=== PATIENT | female | born 1985 | race Caucasian/White ===

== ENCOUNTER 2017-10-05 16:05 | Inpatient (IN) ==
[2017-10-05] MEDS ORDERED: LABETALOL 100mg/20ml INJECTION IVP ONE ×3 (17:20→20:33)
[2017-10-05] MEDS ORDERED: CALCIUM CARBONATE Chewable 500mg TABLET PO PRN (17:34)
[2017-10-05] MEDS ORDERED: MAG-AL + SIM ORAL LIQUID 30ml PO PRN (17:34)
[2017-10-05] MEDS ORDERED: CARBOPROST 250 MCG/ML INJECTION IM PRN (17:34)
[2017-10-05] MEDS ORDERED: LR 1,000 ML IV PRN (17:34)
[2017-10-05] MEDS ORDERED: METHYLERGONOVINE 0.2 MG/ML INJECTION IM PRN (17:34)
--- NOTE | 2017-10-05 17:36 | OB/GYN History & Physical ---
- History of Present Illness Date of Admission: 10/05/17 16:05 History of Present Illness: G1 at 33w6d came in for a routine OB check today and was found to have BPs in the mildly elevated range, 4+ protein on dip, and 12 pound weight gain in the last 2 weeks. No BP Sx. Here on [facility] her systolic BPs have all been in the severely elevated range. 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 Labetolol for her BP, magnesium for seizure prophylaxis, and betamethasone for lung maturity. Will start ripening tomorrow evening after the second steroid dose. Lots of questions answered. Current visit: Yes Status: Acute
[2017-10-05] MEDS ORDERED: CALCIUM GLUCONATE 4.65mEq/10ml INJECTION IV PRN (17:38)
[2017-10-05] MEDS ORDERED: CITRIC ACID/SODIUM CITRATE 30ml PO PRN (17:38)
[2017-10-05] MEDS ORDERED: MAGNESIUM SULFATE 6gm PREMIX 6 GM/100 ML BAG IV ONE (18:00)
[2017-10-05] MEDS ORDERED: BETAMETHASONE 30 MG/5 ML INJECTION IM ONE (18:00)
[2017-10-05] MEDS: MAGNESIUM SULFATE DRIP 20 GM/500 ML BAG IV SCH (18:33)
[2017-10-05] MEDS: ACETAMINOPHEN 500 MG TABLET PO PRN (21:40)
[2017-10-06 00:06] VITALS: BMI 49.3
[2017-10-06] MEDS ORDERED: DiphenhydrAMINE 25 MG CAPSULE PO PRN ×2 (00:57→18:00)
[2017-10-06] MEDS: LABETALOL 100 MG TABLET PO SCH ×3 (00:59→22:15)
[2017-10-06] MEDS: MAGNESIUM SULFATE DRIP 20 GM/500 ML BAG IV SCH ×2 (04:38→15:26)
[2017-10-06] MEDS: ACETAMINOPHEN 500 MG TABLET PO PRN ×2 (05:25→15:23)
--- NOTE | 2017-10-06 08:38 | Ultrasound Report ---
Indication: Severe preeclampsia PROCEDURE: US OB age growth: Encounter: Initial Age by provided LMP is 34 weeks and 0 days correlating to an ARTEMIO of February 10, 2017. Comparison: None PROCEDURE: US OB age growth: Technique: Grayscale and color Doppler transabdominal sonographic imaging was performed. Findings: There is a single living intrauterine gestation in cephalic lie. Placenta is anterior without previa. Quantity of amniotic fluid is normal. Amniotic fluid index is normal at 12.2 cm. Largest vertical pocket in the right lower quadrant is 3.8 cm. Umbilical artery Doppler tracing reveals a peak systolic velocity of 57.4 cm/sec, end diastolic velocity of 14.5 cm/sec, resistive index of 0.75, pulsatility index of 1.32, S/D ratio of 4, and TAPV of 32.6 cm/sec. heart beats regularly at 130 beats per minute. biometry: Biparietal diameter: 8.44 cm 34 weeks and 0 days (47 percentile). Head circumference: 30.77 cm 34 weeks and 3 days (22 percentile). Abdominal circumference: 28.83 cm 32 weeks and 6 days (21 percentile). Femur Length: 6.5 cm 33 weeks and 4 days (27 percentile). biometrics are internally concordant and consistent with an estimated gestational age of 33 weeks and 5 days. Estimated weight is 2163 grams (24 percentile by LMP and 30 percentile by AUA method). Impression: 1. Single living intrauterine gestation with age by provided LMP of 34 weeks and 0 days. This correlates to an ARTEMIO of November 17, 2017. 2. Best estimate of gestational age on today's exam is 33 weeks and 5 days, correlating to an ARTEMIO of November 19, 2017. 3. No acute abnormality seen. .
--- NOTE | 2017-10-06 11:59 | OB/GYN Progress Note ---
UX DEVELOPER Progress Note - Subjective Today's Date: 10/06/17 Patient is feeling ok. No BARROW/scotomata/RUQ pain. No SOA. Good FM. - Objective Urine Output: good General: alert and oriented Abdomen: soft Extremities: non-tender Laboratory Result: 10/06/17 05:16 10/06/17 05:16 Additional Findings: FHT with moderate variability when we are able to trace. No ctx. - Assessment and Plan (1) 34 weeks gestation of Assessment and Plan: Routine care. (2) Severe preeclampsia Qualifiers: Trimester: third trimester Qualified Code(s): O14.13 - Severe pre-eclampsia , third trimester Comment: Last PM she was given labetolol 20 mg IV x2, 40 mg and 80 mg, which brought her BPs down to normal. She received a 200 mg PO dose of labetolol this AM. Will start ripening this evening with the second steroid dose. Q&A.
[2017-10-06] MEDS: PANTOPRAZOLE 40 MG TABLET PO SCH (14:00)
[2017-10-06] MEDS: LEVOTHYROXINE 50 MCG TABLET PO SCH (14:02)
[2017-10-06] MEDS ORDERED: DINOPROSTONE 10 MG VAGINAL INSERT VG ONE ×2 (17:00→17:27)
[2017-10-06] MEDS ORDERED: TERBUTALINE 1 MG/ML VIAL SQ PRN (17:27)
[2017-10-06] MEDS ORDERED: BETAMETHASONE 30 MG/5 ML INJECTION IM ONE (18:00)
[2017-10-06] MEDS ORDERED: CITRIC ACID/SODIUM CITRATE 30ml PO ONE (22:54)
[2017-10-06] MEDS ORDERED: PROCHLORPERAZINE 10 MG/2 ML INJECTION IVP ONE (22:55)
[2017-10-06] MEDS ORDERED: PROCHLORPERAZINE 10 MG/2 ML INJECTION IM ONE (22:55)
[2017-10-07] MEDS: MAGNESIUM SULFATE DRIP 20 GM/500 ML BAG IV SCH ×2 (01:35→11:17)
[2017-10-07] MEDS ORDERED: OXYTOCIN DRIP 30 UNIT/500 ML ML IV PRN ×2 (05:00)
[2017-10-07] MEDS: D5LR 1,000 ML IV PRN ×2 (05:26→18:42)
[2017-10-07] MEDS: PANTOPRAZOLE 40 MG TABLET PO SCH (06:39)
[2017-10-07] MEDS: ACETAMINOPHEN 500 MG TABLET PO PRN (06:39)
[2017-10-07] MEDS: LEVOTHYROXINE 50 MCG TABLET PO SCH (06:39)
[2017-10-07] MEDS ORDERED: LIDOCAINE 2% JELLY Tube 30ml TOP ONE (07:29)
[2017-10-07] MEDS ORDERED: ONDANSETRON 4 MG/2 ML INJECTION IVP PRN ×2 (10:20→21:02)
[2017-10-07] MEDS ORDERED: NALOXONE 0.4 MG/ML INJECTION IVP PRN (10:20)
[2017-10-07] MEDS ORDERED: DiphenhydrAMINE 50 MG/ML INJECTION IVP PRN ×2 (10:20→21:02)
[2017-10-07] MEDS ORDERED: ROPIVACAINE 1% 10MG/ML INJ 200 MG, SUFentanil 50 MCG in NS 100 ML EPI PRN (10:20)
--- NOTE | 2017-10-07 10:24 | Anesthesia Preoperative Report ---
Anesthesia Epidural/Spinal Rec - Date and Time Date: 10/07/17 Procedure: Labor Epidural Plan: Epidural - Vital Signs /Para: P:0 Heart Rate: 126 - Medictaions & Allergies Inpatient Medications: Current Medications Acetaminophen (Tylenol) 500 - 1,000 mg PO Q4H PRN PRN Reason: Pain Last Admin: 10/07/17 06:39 Dose: 1,000 mg Al Hydroxide/Mg Hydroxide (Maalox Plus) 30 ml PO Q3H PRN PRN Reason: Indigestion Calcium Carbonate (Tums) 500 - 1,000 mg PO Q2H PRN PRN Reason: Indigestion Calcium Gluconate (Calcium Gluconate 4.65 Meq/10 Ml (1 Gram)) 4.65 meq IV O PRN Carboprost Tromethamine (Hemabate) 250 mcg IM O PRN PRN Reason: .Downtime Citric Acid/Sodium Citrate (Oracit) 30 ml PO Q2H PRN Last Admin: 10/06/17 00:51 Dose: 30 ml Diphenhydramine HCl (Benadryl) 25 - 50 mg PO HS PRN PRN Reason: Itching Last Admin: 10/06/17 00:59 Dose: 50 mg Diphenhydramine HCl (Benadryl) 50 mg PO HS PRN PRN Reason: Sleep Diphenhydramine HCl (Benadryl) 25 - 50 mg IVP Q3H PRN PRN Reason: Itching Lactated Ringer's (Lactated Ringers) 1,000 mls @ 999 mls/hr IV .Q1H1M PRN Last Admin: 10/07/17 05:29 Dose: 999 mls/hr Magnesium Sulfate (Magnesium Sulfate Drip) 20 gm in 500 mls @ 50 mls/hr IV .Q10H MANJU PRN Reason: 2 G/HR Last Admin: 10/07/17 01:35 Dose: 2 g/hr, 50 mls/hr Dextrose/Lactated Ringer's (Dextrose 5%-Lactated Ringers) 1,000 mls @ 125 mls/ hr IV .Q8H PRN PRN Reason: Labor Last Admin: 10/07/17 05:26 Dose: 125 mls/hr Oxytocin (Pitocin Drip) 30 unit in 500 mls @ 2 mls/hr IV .Q24H PRN; Protocol PRN Reason: Induction/Augmentation Last Admin: 10/07/17 05:27 Dose: 2 mls/hr Oxytocin (Pitocin Drip) 30 unit in 500 mls @ 2 mls/hr IV .Q24H PRN; Protocol PRN Reason: Induction/Augmentation Ropivacaine 200 mg/ Sufentanil Citrate 50 mcg/ Sodium Chloride 121 mls @ 8 mls/ hr EPI PRN PRN PRN Reason: Protocol Labetalol HCl (Normodyne) 200 mg PO BID [facility] Last Admin: 10/06/17 22:15 Dose: Not Given Levothyroxine Sodium (Synthroid) 50 mcg PO ACB [facility] Last Admin: 10/07/17 06:39 Dose: 50 mcg Methylergonovine Maleate (Methergine) 0.2 mg IM O PRN Misoprostol (Cytotec) 800 mcg SC ONCE PRN Naloxone HCl (Narcan) 0.1 mg IVP Q2M PRN PRN Reason: Respiratory distress Ondansetron HCl (Zofran) 4 mg IVP Q6H PRN PRN Reason: Nausea &/or vomiting Pantoprazole Sodium (Protonix Tab) 40 mg PO ACB [facility] Last Admin: 10/07/17 06:39 Dose: 40 mg Terbutaline Sulfate (Brethine) 0.25 mg SQ PRN PRN Allergies/Adverse Reactions: Allergies Allergy/AdvReac Type Severity Reaction Status Date / Time No Known Allergies Allergy Verified 10/05/17 17:12 - Home Medications Home Medications: Home Medications Medication Instructions Recorded Confirmed Type Pantoprazole Tab [Protonix Tab] 1 tab PO ACBID 10/05/17 10/05/17 History Pnv No.95/Ferrous Fum/Folic AC 1 each PO 10/05/17 History [ Multivitamin Tablet] Aspirin Chewable [ASA] 81 mg PO 10/06/17 History Folic Acid [Folate] 1 tab PO DAILY 10/06/17 10/06/17 History Lactobacillus Acidophilus 1 each PO 10/06/17 History [Probiotic] Montelukast [Singulair] 10 mg PO HS 10/06/17 10/06/17 History - Medical History Respiratory: Reports: Sleep Apnea Cardiovascular: Reports: High Cholesterol Gastrointestional: Reports: Gastroesophageal Reflux Disease, Morbid Obesity Renal/Endocrine: Reports: Thyroid Disease (subclinical hypothyroidism) Other History: Reports: Now - Surgical History HEENT Surgeries: Reports: Oral Surgery (wisdom tooth extraction) Respiratory Surgery/Treatments: Reports: CPAP Use (x5 years) Reproductive Surgery/Treatment: Reports: Laparoscopy (2010, 2012, 2013), Salpingectomy (bilateral 2012) Anesthesia Reactions: None Hx Family Anesthesia Reaction: No History of Motion Sickness: No - Social History Smoking Status: Never smoker Second Hand Exposure: No Substance Use Type: does not use Alcohol Intake Frequency: does not drink - Pertinent Findings Lab Data: CBC and BMP 10/07/17 05:56 10/07/17 05:56 BMP 10/05/17 10/06/17 10/07/17 16:00 18:19 05:56 Sodium 134 L 135 L Potassium 5.3 H 4.6 Chloride 103 103 Carbon Dioxide 19 L 19 L BUN 14.0 15.0 Creatinine 0.6 L 0.6 L 0.6 L Glucose 106 143 H Calcium 7.7 L 7.3 L Liver Function 10/06/17 10/07/17 Range/Units 18:19 05:56 Total Bilirubin 0.60 0.40 (0.20-1.30) MG/DL AST 34 23 (14-36) U/L ALT 24 20 (1-35) U/L Alkaline Phosphatase 146 H 140 H (38-126) U/L Albumin 3.9 3.7 (3.5-5.0) g/dL Urine 10/05/17 Range/Units 16:00 Urine Protein 260 mg/dL - Physical Exam Respiratory Exam: lungs clear, bilateral breath sounds equal Cardiovascular Exam: regular rate and rhythm - Airway Assessment Mallampati Score: III TMD: 3 Fingerbreadths Neck Extension: fair Overall Assessment: may be difficult intubation - ASA ASA Score: 3 - Discussion Discussion: Discussed risks/options/alternatives of anesthesia and questions answered. Patient consents. Nursing pain assessment noted. Anesthesia Discussion: spouse Attestation Statement: Prior to the delivery of any anesthetic medication, I examined the patient, developed the plan, obtained the patient's consent and discussed the risk and benefits of the procedure with the patient/guardian.
[2017-10-07] MEDS: LABETALOL 100 MG TABLET PO SCH (11:19)
[2017-10-07] MEDS ORDERED: EPHEDRINE 50mg/ml INJECTION IVP ONE (11:30)
[2017-10-07] MEDS ORDERED: LEVOTHYROXINE 50 MCG TABLET PO SCH (12:59)
[2017-10-07] MEDS ORDERED: CITRIC ACID/SODIUM CITRATE 30ml PO ONE (19:38)
[2017-10-07] MEDS ORDERED: CEFAZOLIN PREMIX (MC ONLY) 2 GM/50 ML BAG IV ONE (19:38)
[2017-10-07] MEDS ORDERED: FAMOTIDINE PB 20 MG/50 ML BAG IV ONE (19:38)
[2017-10-07] MEDS ORDERED: AZITHROMYCIN IV 500 MG in NS 250ml 250 ML IV ONE (19:38)
[2017-10-07] MEDS ORDERED: CEFAZOLIN 1 G INJECTION IVP ONE (19:38)
[2017-10-07] MEDS ORDERED: NOZIN NASAL SWAB NAS ONE (19:38)
[2017-10-07] MEDS ORDERED: TRANEXAMIC ACID 1,000 MG in NS 100 ML IV ONE (19:42)
[2017-10-07] MEDS ORDERED: MORPHINE SULFATE PF 5mg/10ml INJ (Duramorph) ONE (20:07)
[2017-10-07] MEDS ORDERED: FentaNYL 100 MCG/2 ML INJECTION ONE (20:07)
[2017-10-07] MEDS ORDERED: LIDOCAINE 2%/EPI 1:200,000 20ml SDV PF ONE (20:09)
[2017-10-07] MEDS ORDERED: EPHEDRINE 50mg/ml INJECTION ONE ×2 (20:09→20:31)
[2017-10-07] MEDS ORDERED: OXYTOCIN BOLUS BAG 30 UNIT/500 ML ML IV SCH (21:00)
[2017-10-07] MEDS ORDERED: NALOXONE 2 MG/2 ML INJECTION PFS IVP PRN (21:02)
[2017-10-07] MEDS ORDERED: METOCLOPRAMIDE 10mg/2ml INJECTION IVP PRN (21:02)
[2017-10-07] MEDS ORDERED: SIMETHICONE 80 MG CHEWABLE TABLET PO PRN (21:32)
[2017-10-07] MEDS ORDERED: HYDROCORTISONE 2.5% CREAM 30gm RECTALLY PRN (21:32)
[2017-10-07] MEDS ORDERED: MAGNESIUM SULFATE DRIP 20 GM/500 ML BAG IV SCH (21:45)
[2017-10-07] MEDS ORDERED: OXYTOCIN DRIP 30 UNIT/500 ML ML IV SCH (21:45)
[2017-10-07] MEDS: MetroNIDAZOLE 500 MG TABLET PO SCH (22:38)
[2017-10-07] MEDS: D5LR 1,000 ML IV SCH (22:39)
[2017-10-07] MEDS: NOZIN NASAL SWAB NAS SCH (23:43)
[2017-10-08] MEDS: HYDROCODONE/APAP 5mg/325mg TABLET PO PRN ×4 (00:04→23:41)
[2017-10-08] MEDS: MAGNESIUM SULFATE DRIP 20 GM/500 ML BAG IV SCH (00:46)
[2017-10-08] MEDS: NOZIN NASAL SWAB NAS SCH ×3 (07:35→23:38)
--- NOTE | 2017-10-08 08:13 | OB/GYN Progress Note ---
OB-PP Progress Note - General PPD1 - Subjective Date: 10/08/17 Lochia: Minimal Pain: controlled Voiding: gooden still in place Nausea or Vomiting Present: No - Objective Vital Signs: Last Vital Signs Pulse 68 10/08/17 06:00 Resp 16 10/08/17 06:00 BP 117/65 10/08/17 06:00 Pulse Ox 93 10/08/17 07:15 Urine Output: good General: alert and oriented Abdomen: fundus firm, non-tender Incision: dry, dressed Extremities: non-tender Side: bilateral Site: ankle Edema Degree: 1+ Laboratory: Laboratory Results - last 24 hr 10/08/17 02:22 Turbidity < 20 Sodium 134 L Potassium 4.6 Chloride 103 Carbon Dioxide 23 Anion Gap 8 BUN 17.0 Creatinine 0.7 GFR Calculation 99 BUN/Creatinine Ratio 24 Glucose 133 H Calculated Osmolality 262 Calcium 6.6 L D Total Bilirubin 0.30 Icterus Index < 2 AST 32 ALT 17 Alkaline Phosphatase 109 Total Protein 5.9 L Albumin 3.1 L Globulin 2.8 Albumin/Globulin Ratio 1.1 Specimen Hemolysis < 15 - Assessment (1) Severe preeclampsia Comment: Last PM she was given labetolol 20 mg IV x2, 40 mg and 80 mg, which brought her BPs down to normal. She received a 200 mg PO dose of labetolol this AM. Will start ripening this evening with the second steroid dose. Q&A. Status: Acute (2) 34 weeks gestation of Status: Acute - Assessment Assessment: SP, Primary C/S, Preeclampsia Comments: BP normotensive. Baby in SCN. Cont routine care.
[2017-10-08] MEDS: SIMETHICONE 80 MG CHEWABLE TABLET PO SCH ×4 (09:39→23:35)
[2017-10-08] MEDS: MetroNIDAZOLE 500 MG TABLET PO SCH ×3 (09:39→23:35)
[2017-10-08] MEDS: DOCUSATE CALCIUM 240 MG CAPSULE PO SCH (09:40)
--- NOTE | 2017-10-08 13:44 | Operative Note ---
DATE OF PROCEDURE 10/07/2017 PREOPERATIVE DIAGNOSES 1. 31-year-old 1 at 34 weeks 1 day gestational age. 2. Severe preeclampsia. 3. Late decelerations with Pitocin. 4. BMI 49. 5. IVF . POSTOPERATIVE DIAGNOSES 1. 31-year-old 1 at 34 weeks 1 day gestational age. 2. Severe preeclampsia. 3. Late decelerations with Pitocin. 4. BMI 49. 5. IVF . PROCEDURE Primary low transverse section. SURGEON Dr. Irasema Bolivar PLANNING ANALYST Dr. David Mccarty. ANESTHESIA Epidural by Jt Malcolm CRNA. COMPLICATIONS None. EBL 800 ml FINDINGS Viable female infant, cephalic LOT position, clear fluids, Apgars 5/6/7, weight 1884 g, name "Misa." Her uterus was status post bilateral salpingectomy. Her ovaries appeared normal. She had bowel adhesed across the posterior lower uterus. INDICATIONS Kristen came to my office for a routine OB check on 10/05/2017. She was found to have mildly elevated blood pressures with 4+ protein on a dipstick. She was sent to Maternal Child for further evaluation where she was found to have all severe blood pressures. She was given four doses of IV labetalol and started on magnesium for seizure prophylaxis. She was given two doses of betamethasone 24 hours apart. We then started cervical ripening with the Cervidil overnight. The morning of 10/07, she was started on Pitocin. Her membranes were ruptured artificially returning clear fluids. She received an epidural. Her Pitocin had to be turned down and then off due to late decelerations. A DFM was placed to help track heart tones better due to maternal body habitus. We restarted the Pitocin due to inadequate contractions. We only got up to 6 milliunits and baby started having recurrent late decelerations again. At this point she was 6 cm and -1 station. After the Pitocin was turned off, her contractions greatly diminished and she did not change her cervix on her own without Pitocin. The decision was made to proceed with a . DESCRIPTION OF PROCEDURE The patient was taken to the operating room where her epidural was brought up to adequate surgical levels. She already had a Orourke catheter in place. She was placed in the dorsal supine position with a leftward tilt. A Pfannenstiel skin incision was made through her previous laparotomy incision and carried down to the fascia. The fascia was incised in the midline and extended laterally with the Gerard scissors. The fascia was elevated and the underlying rectus muscles were dissected off. The rectus muscles were in the midline with the scalpel. The peritoneum was entered during this process. She had a small amount of omental adhesions to the anterior abdominal wall. These were carefully and the peritoneal incision was extended superiorly and inferiorly with good visualization of the bladder. The bladder blade was inserted. A bladder flap was created sharply and the bladder blade was reinserted. The lower uterine segment was incised in a transverse fashion layer by layer with the scalpel and bluntly extended. The infant's head was lifted up out of the pelvis. We had some difficulty delivering the head, I believe due to the previous scar tissue from her previous laparotomy. I attempted twice to put the soft vacuum cup on the baby's head. We had two pop-offs with minimal traction so I don't think that I ever had a very good seal on it. I used the bandage scissors to incise part of the right rectus muscles. The head finally delivered. The nose and mouth were suctioned. We cut the umbilical cord long and handed the baby to Dr. Dfuf who was asked to attend due to the prematurity and severe preeclampsia. The placenta delivered spontaneously. The uterus was exteriorized and cleared of all clots and debris. The uterine incision was closed with running locked O Monocryl. Hemostasis was obtained with the cautery. The bladder flap was closed with running 3-0 Vicryl. The uterus was returned to the abdomen. The gutters were cleared of all clots and debris. The uterine incision was inspected one final time and still noted to be hemostatic. The peritoneum was closed with running 2-0 Vicryl. Hemostasis was obtained in the rectus muscles with the cautery. The fascia was closed with running 0 Vicryl. Hemostasis was obtained in the subcutaneous tissue with the cautery. Raad's fascia was closed with running 2-0 chromic. The skin was closed with chau. A Prevena wound vac was placed due to the patient's BMI. Sponge, sharp and instrument counts were correct. The patient tolerated the procedure well and was taken to the recovery room in good condition. LUISA
[2017-10-08] MEDS: D5LR 1,000 ML IV SCH (14:17)
[2017-10-08] MEDS: LEVOTHYROXINE 50 MCG TABLET PO SCH (23:34)
[2017-10-08] MEDS: PANTOPRAZOLE 40 MG TABLET PO SCH (23:35)
[2017-10-09] MEDS: HYDROCODONE/APAP 5mg/325mg TABLET PO PRN ×4 (04:22→20:45)
[2017-10-09] MEDS: MetroNIDAZOLE 500 MG TABLET PO SCH ×3 (08:52→21:49)
[2017-10-09] MEDS: DOCUSATE CALCIUM 240 MG CAPSULE PO SCH (08:52)
[2017-10-09] MEDS: NOZIN NASAL SWAB NAS SCH ×3 (08:53→20:43)
[2017-10-09] MEDS: SIMETHICONE 80 MG CHEWABLE TABLET PO SCH ×4 (08:53→21:57)
--- NOTE | 2017-10-09 10:46 | OB/GYN Progress Note ---
OB-PP Progress Note - General PPD2 POD:: POD2 - Subjective Date: 10/09/17 Lochia: Minimal Pain: controlled Voiding: voiding Nausea or Vomiting Present: No - Objective Vital Signs: Last Vital Signs Temp 97.9 F 10/09/17 08:00 Pulse 90 10/09/17 08:00 Resp 20 10/09/17 08:00 BP 153/85 H 10/09/17 08:00 Pulse Ox 100 10/09/17 08:00 General: alert and oriented Laboratory: Laboratory Results - last 24 hr 10/09/17 01:36 WBC 17.4 H RBC 3.47 L Hgb 10.2 L Hct 31.8 L MCV 91.6 MCH 29.4 MCHC 32.1 RDW Std Deviation 47.5 Plt Count 363 MPV 10.2 - Assessment (1) Severe preeclampsia Comment: Last PM she was given labetolol 20 mg IV x2, 40 mg and 80 mg, which brought her BPs down to normal. She received a 200 mg PO dose of labetolol this AM. Will start ripening this evening with the second steroid dose. Q&A. Status: Acute (2) 34 weeks gestation of Status: Acute - Assessment Assessment: SP, Primary C/S - Plan Plan: routine care Expected date of discharge: 10/10/17 Cont to monitor BP off Labetalol, plan [facility] status tomorrow. Baby in SCN, doing well.
[2017-10-09 20:43] VITALS: RESP 20
[2017-10-09] MEDS: LEVOTHYROXINE 50 MCG TABLET PO SCH (20:44)
[2017-10-09] MEDS: PANTOPRAZOLE 40 MG TABLET PO SCH (20:44)
[2017-10-10] MEDS: HYDROCODONE/APAP 5mg/325mg TABLET PO PRN ×4 (04:00→20:36)
[2017-10-10] MEDS: DOCUSATE CALCIUM 240 MG CAPSULE PO SCH (09:29)
[2017-10-10] MEDS: SIMETHICONE 80 MG CHEWABLE TABLET PO SCH ×4 (09:29→22:48)
[2017-10-10] MEDS: NOZIN NASAL SWAB NAS SCH ×3 (14:24→20:31)
[2017-10-10] MEDS: LEVOTHYROXINE 50 MCG TABLET PO SCH (20:31)
[2017-10-10] MEDS: PANTOPRAZOLE 40 MG TABLET PO SCH (20:31)
[2017-10-10 22:57] VITALS: BP 142/106; PULSE 97; TEMP 98.3; O2SAT 96
== END 2017-10-10 23:00 | disposition home or self-care (01) | DRG 765 ==
LOC: MC 16:05 → OBOBS 16:11 → MC 17:33
PROVIDERS: ADMIT Obstetrics & Gynecology; ATTEND Obstetrics & Gynecology